=== PATIENT | female | born 1995 | race Caucasian/White ===

== ENCOUNTER 2017-05-25 20:24 | Emergency (ER) | payer MEDICAID, OTHER ==
[~2017-05-25] VITALS: Ht 170.2 cm; Wt 127.0 kg
--- NOTE | 2017-05-25 22:05 | NUR ---
PATIENT WAS SEEN AND EXAMINED BY DR JAQUEZ.
--- NOTE | 2017-05-25 22:31 | NUR ---
Patient discharged to home in stable conditon. Written and verbal after care instructions given. Patient verbalizes understanding of instructions.
== END 2017-05-25 22:34 | disposition home or self-care (01) ==
LOC: ER 20:26
DX: H66.93 Otitis media, unspecified, bilateral (principal); B86 Scabies
CPT/HCPCS: A4663

== ENCOUNTER 2017-07-23 16:39 | Emergency (ER) | payer OTHER ==
[~2017-07-23] VITALS: Ht 170.2 cm; Wt 127.0 kg
--- NOTE | 2017-07-23 18:32 | NUR ---
Dr Ortiz is at bedside evaluating the patient, pending MD orders
[2017-07-23] MEDS ORDERED: CEPHALEXIN MONOHYDRATE 500 MG CAPSULE PO ONE (19:00)
[2017-07-23] MEDS ORDERED: predniSONE 50 MG TABLET PO ONE (19:00)
[2017-07-23] MEDS ORDERED: CEPHALEXIN MONOHYDRATE 500 MG CAPSULE ONE (19:14)
[2017-07-23] MEDS ORDERED: predniSONE 50 MG TABLET ONE (19:14)
--- NOTE | 2017-07-23 19:48 | NUR ---
Patient discharged to home in stable conditon with no distress noted. Written and verbal after care instructions given. Patient verbalizes understanding of instructions. Walked out of ER with no distress noted
[2017-07-23 19:50] VITALS: BP 125/75
== END 2017-07-23 19:51 | disposition home or self-care (01) ==
LOC: ER 16:41
DX: J32.9 Chronic sinusitis, unspecified (principal)
CPT/HCPCS: 36415; 86403; 87070; A4663; J7512

== ENCOUNTER 2018-09-02 16:34 | Emergency (ER) | payer OTHER ==
[~2018-09-02] VITALS: Ht 170.2 cm; Wt 127.0 kg
--- NOTE | 2018-09-02 16:51 | NUR ---
Patient ambulated wit stable gait. A/Ox4. Speech clear, speaks in complete sentences. No neuro deficits. Patient came for c/o bilateral ear pain + congestion x1 week. Pain 6/10. Respiratory even and unlabored, reports having some sinus+chest congestion. No cardiovascular distress noted, all pulses palpable. No GI/Gu distress noted.
--- NOTE | 2018-09-02 16:59 | NUR ---
Patient discharged to home in stable conditon. Written and verbal after care instructions given. Patient verbalizes understanding of instructions. Patient ambulated with stable gait.
[2018-09-02 17:00] VITALS: BP 10/78
== END 2018-09-02 17:01 | disposition home or self-care (01) ==
LOC: ER 16:35
DX: H66.93 Otitis media, unspecified, bilateral (principal)
CPT/HCPCS: A4663

== ENCOUNTER 2019-02-20 22:26 | Emergency (ER) | payer OTHER ==
[~2019-02-20] VITALS: Ht 170.2 cm; Wt 127.0 kg
--- NOTE | 2019-02-20 22:37 | NUR ---
Dr. Layne at bedside
--- NOTE | 2019-02-20 22:47 | NUR ---
x-ray cell technician at bedside
--- NOTE | 2019-02-20 23:14 | NUR ---
Patient discharged to home in stable conditon. Written and verbal after care instructions given. Patient verbalizes understanding of instructions. patient self ambulatory with steady gait. exit care oackage and personal belongings taken home with the patient at discharge. patient has verbal understanding of health. All discharhe instruction discuss with patient and mother at bedside. patient in stable condition. a/o x4 and VSS.
[2019-02-20 23:22] VITALS: BP 114/74
== END 2019-02-20 23:23 | disposition home or self-care (01) ==
LOC: ER 22:30
DX: J06.9 Acute upper respiratory infection, unspecified (principal)
CPT/HCPCS: 71045; A4663

== ENCOUNTER 2019-03-05 22:59 | Emergency (ER) | payer OTHER ==
[~2019-03-05] VITALS: Ht 170.2 cm; Wt 127.0 kg
--- NOTE | 2019-03-05 23:08 | NUR ---
Patient arrive at the ER accompanied by her mother, with complaining of cough in the past 2 days. Patient was here 2 weeks ago with the same complain, felt better after then started having cough again x2 days. Patient AAOx4. Afebrile. Pt not in cardiopulmonary distress. Respiration even and unlabored with symmetrical rise. No /GI concern.
--- NOTE | 2019-03-05 23:23 | NUR ---
Dr. Morris on bedside for MSE.
[2019-03-05] MEDS ORDERED: BENZONATATE 100 MG CAPSULE ONE (23:36)
[2019-03-05] MEDS ORDERED: BENZONATATE 100 MG CAPSULE PO ONE (23:45)
--- NOTE | 2019-03-05 23:50 | NUR ---
Patient discharged to home in stable condition. Written and verbal after care instructions given. Patient verbalizes understanding of instructions. Pt ambulated out of the ER with steady gait accompanied by her mother. All belongings with patient.
[2019-03-05 23:55] VITALS: BP 110/84
== END 2019-03-05 23:50 | disposition home or self-care (01) ==
LOC: ER 23:02
DX: J20.9 Acute bronchitis, unspecified (principal); H66.93 Otitis media, unspecified, bilateral
CPT/HCPCS: A4663

== ENCOUNTER 2021-11-07 15:19 | Emergency (ER) | payer SELFPAY ==
--- NOTE | 2021-11-07 16:00 | NUR ---
Patient left without being seen. Pt called in waiting area, no respond
== END 2021-11-07 16:00 | disposition left against medical advice (07) ==
LOC: ER 15:19
DX: Z53.21 Procedure and treatment not carried out due to patient leaving prior to being seen by health care provider (principal)